=== PATIENT | female | born 1955 | race Hispanic/Latino ===

== ENCOUNTER 2016-10-24 14:27 | Inpatient (IN) | payer OTHER ==
[2016-10-24 15:35] LABS: Basophils % (Auto) 1.2 % (0.0-1.8); Eosinophils % (Auto) 2.8 % (0.0-4.3); Hematocrit 38.7 % (30.3-42.9); Hemoglobin 13.4 gm/dl (10.1-14.3); Mean Corpuscular HGB Conc 35 % (30-34); Mean Corpuscular Hemoglobin 33 pg (28-32); Mean Corpuscular Volume 95 fl (79-97); Platelet Count 215 K/mm3 (140-440); Red Blood Count 4.06 M/mm3 (3.65-5.03); Red Cell Distribution Width 12.9 % (13.2-15.2); White Blood Count 5.2 K/mm3 (4.5-11.0)
[2016-10-24 15:50] LABS: Anion Gap 18 mmol/L; BUN/Creatinine Ratio 22.22; Blood Urea Nitrogen 20 mg/dL (7-17); Calcium 8.9 mg/dL (8.4-10.2); Carbon Dioxide 24 mmol/L (22-30); Chloride 105.1 mmol/L (98-107); Glucose 107 mg/dL (65-100); Potassium 3.9 mmol/L (3.6-5.0); Sodium 143 mmol/L (137-145)
--- NOTE | 2016-10-24 16:22 | Emergency Department Report ---
ED Chest Pain HPI - General Chief Complaint: Chest Pain Stated Complaint: CHEST PAIN Time Seen by Provider: 10/24/16 16:10 Source: EMS Mode of arrival: Stretcher Limitations: No Limitations - History of Present Illness Initial Comments: Patient is a 61 years old female in by ambulance with left-sided chest pain that started around 2:00 this afternoon. She describes her pain as pressure- like radiated to her back and left shoulder. She never had any similar pain like this before. No shortness of breath no nausea no vomiting. Patient is a heavy smoker since she was a teenager. History of high cholesterol. MD Complaint: chest pain -: Sudden Onset: during rest Pain Location: substernal, left chest Pain Radiation: back Severity scale (0 -10): 7 Quality: tightness, heaviness re: diaphoresis. denies: nausea, vomting Other Symptoms: denies: cough, fever, rash - Related Data Allergies Allergy/AdvReac Type Severity Reaction Status Date / Time aspirin [From Bufferin] Allergy Itching Verified 10/24/16 14:49 calcium carbonate Allergy Itching Verified 10/24/16 14:49 [From Bufferin] magnesium [From Bufferin] Allergy Itching Verified 10/24/16 14:49 codeine AdvReac Itching Verified 10/24/16 14:49 Heart Score - HEART Score History: Moderately suspicious EKG: Non-specific Age: 45-65 Risk factors: 1-2 risk factors Troponin: < normal limit HEART Score: 4 - Critical Actions Critical Actions: 4-6 pts:12-16.6% risk of adverse cardiac event. Should be admitted ED Review of Systems ROS: Stated complaint: CHEST PAIN Other details as noted in HPI Comment: All other systems reviewed and negative Constitutional: denies: chills, fever Respiratory: denies: cough, shortness of breath Cardiovascular: chest pain. denies: palpitations, dyspnea on exertion, orthopnea Gastrointestinal: denies: abdominal pain, nausea, vomiting, diarrhea Neurological: denies: headache, weakness, numbness ED Past Medical Hx - Social History Smoking Status: Current Every Day Smoker Substance Use Type: Alcohol ED Physical Exam - General Limitations: No Limitations General appearance: alert - Neck Neck exam: Present: normal inspection - Respiratory Respiratory exam: Present: normal lung sounds bilaterally. Absent: respiratory distress, wheezes, rales, rhonchi, stridor, chest wall tenderness, accessory muscle use, decreased breath sounds, prolonged expiratory - Cardiovascular Cardiovascular Exam: Present: bradycardia, normal heart sounds. Absent: systolic murmur, diastolic murmur - GI/Abdominal GI/Abdominal exam: Present: soft. Absent: distended, tenderness, guarding, rebound - Extremities Exam Extremities exam: Present: normal inspection. Absent: pedal edema - Back Exam Back exam: Absent: CVA tenderness (R), CVA tenderness (L) - Neurological Exam Neurological exam: Present: alert, oriented X3, CN II-XII intact - Skin Skin exam: Present: warm, intact ED Course Vital Signs 10/24/16 10/24/16 10/24/16 14:30 14:46 14:48 Temperature 98.6 F 98.6 F 98.6 F Pulse Rate 58 L 56 L 58 L Respiratory 16 18 16 Rate Blood Pressure 126/71 Blood Pressure 126/71 126/71 [Right] O2 Sat by Pulse 99 98 98 Oximetry 10/24/16 14:51 Temperature Pulse Rate Respiratory 20 Rate Blood Pressure Blood Pressure [Right] O2 Sat by Pulse 98 Oximetry - Reevaluation(s) Reevaluation #1: 10/24/16 17:15 Patient stated that she is feeling better discussed with Dr. Hyatt for admission ED Medical Decision Making - Lab Data Result diagrams: 10/24/16 15:18 10/24/16 15:18 Critical care attestation.: If time is entered above; I have spent that time in minutes in the direct care of this critically ill patient, excluding procedure time. ED Disposition Clinical Impression: Chest pain Disposition: OP ADMIT IP TO THIS HOSP Is pt being admited?: Yes Condition: Stable Instructions: Chest Pain (ED) Referrals: PRIMARY CARE,MD [Primary Care Provider] - 3-5 Days
--- NOTE | 2016-10-24 16:50 | XRay Report ---
AP CHEST: History: Chest pain. AP view of the chest demonstrates a normal mediastinal and cardiac contour with clear lungs and normal bony and soft tissue structures. IMPRESSION: Normal AP chest.
--- NOTE | 2016-10-24 17:37 | Admit Criteria Form ---
Admission Criteria Documentation: CHEST PAIN Clinical Indications for Admission to Inpatient Care (Place 'X' for any and all applicable criteria): Admission is indicated for chest pain and ANY ONE of the following(1)(2)(3)(4)(5 ): [ ]I. Angina with acute coronary syndrome (Also use Myocardial Infarction or Angina guideline) [ ]II. Hemodynamic instability [ ]III. Angina needing acute intervention as indicated by ALL of the following( 11)(12): [ ]a) Unstable angina is present as indicated by angina that is ANY ONE of the following: [ ]i) New onset [ ]ii) Nocturnal [ ]iii) Prolonged at rest [ ]iv) Progressive [ ]b) Angina warrants acute intervention as indicated by ANY ONE of the following: [ ]i) Recurrent angina (e.g, not responding as previously to treatment) [ ]ii) Angina at rest or with low-level activities despite initial medical therapy [ ]iii) New or presumably new ST-segment depression on ECG [ ]iv) Signs or symptoms of heart failure (eg, dyspnea, pulmonary edema) [ ]v) New or worsening mitral regurgitation [ ]vi) Hemodynamic instability [ ]vii) Dangerous arrhythmia (eg, sustained ventricular tachycardia) [ ]viii) History of percutaneous coronary intervention within 6 months [ ]ix) History of coronary artery bypass graft surgery [ ]x) KISHA risk score of 2 or greater[A] [ ]xi) History of Diabetes(14) [ ]xii) High-risk cardiac ischemia findings on noninvasive testing (e.g, echocardiogram, treadmill testing, nuclear scan) [ ]xiii) Chronic renal insufficiency (ie, estimated GFR less than 60 mL/min/1.732m) [ ]xiv) Left ventricular ejection fraction less than 40% [ ]IV. Evidence of WA (eg, cardiac biomarkers positive, ST-segment elevation on ECG) also use Myocardial Infarction Criteria Form. [ ]V. Pulmonary edema [ ]. Respiratory distress [ ]VII. Chest pain indicative of serious diagnosis other than coronary artery disease (eg, aortic dissection) [ ]VIII. Contraindications and/or Inappropriate clinical situations for Observational Care in patients with Chest Pain, when ANY ONE of the following is required: [ ]a) Patient with risk factor for pulmonary embolism, acute coronary syndrome and myocardial infarction (18) [ ]b) Patient with Pulmonary embolism require an average LOS of 4.3 days, therefore emergency department observation management is inappropriate 18,23 [ ]c) Painful condition/s in the elderly, have the highest rate of recidivism after emergency department observation management (10.8%) 20,21,22 [ ]d) Elevated cardiac biomarker requires intensive and exhaustive care (19) [X ]IX. General contraindications and/or Inappropriate clinical situations for Observational Care in patients with Chest Pain, when ANY ONE of the following is required: [ X]a) Prediction of prolongation of LOS based on ANY ONE of the following may be considered as a contraindication for observational care 2, 3, 4, 5, 6, 7, 8, 9, 10, 11 [ ]i) Age > 65 yrs. [ X]ii) Patient arriving by ambulance [ ]iii) Patient with high acuity [ ]iv) Patient requiring vital sign monitoring [ ]v) Patient on IV medication [ ]b) Systolic blood pressures 180mmHg 3,12 [ ]c) Patient with altered mental status including delirium and other alteration of consciousness, (3) [ ]d) Patient whose discharge disposition will be to a residential home or rehabilitation home should not be managed in Emergency Department Observation Unit. CMS rule requires 3 days hospital stay before such placement. 3,13 [ ]e) Patient with failure to thrive due to broad array of etiologies 3,16,17 [ ]f) Inability to ambulate 3,14 Extended stay beyond goal length of stay may be needed for (1)(28): [ ]a) Specific condition diagnosed after evaluation (eg, pulmonary embolism, aortic dissection) [ ]b) Unstable angina [ ]c) Continued suspicion of acute coronary syndrome with inability to complete needed cardiac evaluation (eg, patient clinically unable to undergo stress testing) [ ]d) Myocardial infarction (Contents from ANGINA and CHEST PAIN clinical indications for admission to inpatient care have been integrated in this form) The original [employer] content created by [employer] has been revised. The portions of the content which have been revised are identified through the use of italic text or in bold, and [facility] [employer] has neither reviewed nor approved the modified material. All other unmodified content is copyright [employer]. Please see references footnoted in the original [facility] [employer] edition 2016 Admission Criteria Met: Yes
[2016-10-24] MEDS ORDERED: CLONAZEPAM 0.25 MG PO PRN (17:47)
--- NOTE | 2016-10-24 17:47 | History and Physical Report ---
History of Present Illness Date of examination: 10/24/16 Date of admission: 10/24/16 Chief complaint: Chest pain sinnce 2 pm History of present illness: - History of Present Illness Patient is a 61 years old female in by ambulance with left-sided chest pain that started around 2:00 this afternoon. She describes her pain as pressure- like radiated to her back and left shoulder. She never had any similar pain like this before. No shortness of breath no nausea no vomiting. Patient is a heavy smoker since she was a teenager. History of high cholesterol. Onset: during rest Pain Location: substernal, left chest Pain Radiation: back Severity scale (0 -10): 7 Quality: tightness, heaviness No diaphoresis. denies: nausea, vomting Other Symptoms: denies: cough, fever, rash Past History Past Medical History: other (Anxiety/Depression) Past Surgical History: No surgical history Social history: smoking (1pps) Medications and Allergies Allergies Allergy/AdvReac Type Severity Reaction Status Date / Time aspirin [From Bufferin] Allergy Itching Verified 10/24/16 14:49 calcium carbonate Allergy Itching Verified 10/24/16 14:49 [From Bufferin] magnesium [From Bufferin] Allergy Itching Verified 10/24/16 14:49 codeine AdvReac Itching Verified 10/24/16 14:49 Iodinated Contrast Media - AdvReac Nausea Verified 10/24/16 18:36 IV Dye Home Medications Medication Instructions Recorded Confirmed Last Taken Type Aspirin [Adult Low Dose Aspirin EC] 81 mg PO DAILY 10/24/16 10/24/16 10/24/16 History Multivitamin Tab [Multiple Vitamin 1 each PO QDAY 10/24/16 10/24/16 10/24/16 History TAB (Theragran)] Vortioxetine Hydrobromide 10 mg PO DAILY 10/24/16 10/24/16 10/24/16 History [Trintellix] clonazePAM 0.25 mg PO QID PRN 10/24/16 10/24/16 10/24/16 History Review of Systems All systems: negative Constitutional: no weight loss, no weight gain, no fever, no chills, no sweats, no night sweats, no anorexia, no fatigue, no weakness, no malaise, no lethargy Ears, nose, mouth and throat: no sore throat, no swelling in mouth, no swelling in throat, no odynophagia Breasts: deferred Cardiovascular: chest pain, no orthopnea, no palpitations, no rapid/irregular heart beat, no edema, no syncope, no lightheadedness, no shortness of breath Respiratory: no cough, no cough with sputum, no excessive sputum, no hemoptysis , no shortness of breath, no dyspnea on exertion Gastrointestinal: no nausea, no vomiting, no diarrhea, no constipation, no change in bowel habits, no hematemesis, no coffee ground emesis Genitourinary Female: no dysuria, no urinary frequency, no urgency, no stress incontinence Menstruation: no ammenorrhea Musculoskeletal: no neck stiffness, no neck pain, no shooting arm pain, no arm numbness/tingling, no low back pain, no shooting leg pain, no leg numbness/ tingling, no redness of joints Integumentary: no rash, no pruritis, no redness, no sores, no wounds, no jaundice, no boils, no blisters Neurological: no seizures, no syncope Psychiatric: anxiety Endocrine: no cold intolerance, no heat intolerance, no polyphagia, no excessive thirst, no polydipsia, no polyuria, no nocturia Hematologic/Lymphatic: no easy bruising, no easy bleeding Allergic/Immunologic: no urticaria, no allergic rhinitis, no wheezing Exam - Physical Exam Narrative exam: Lying in bed comfortably - Constitutional Vitals: Temp Pulse Resp BP Pulse Ox 98.6 F 58 L 20 126/71 98 10/24/16 14:48 10/24/16 14:48 10/24/16 14:51 10/24/16 14:48 10/24/16 14:51 General appearance: Present: no acute distress, well-nourished - EENT Eyes: Present: PERRL ENT: hearing intact, clear oral mucosa - Neck Neck: Present: supple, normal ROM - Respiratory Respiratory effort: normal Respiratory: bilateral: CTA - Cardiovascular Heart rate: 70 Rhythm: regular Heart Sounds: Present: S1 & S2. Absent: rub, click - Extremities Extremities: pulses symmetrical, No edema Peripheral Pulses: within normal limits - Abdominal General gastrointestinal: Present: soft, non-tender, non-distended, normal bowel sounds Female genitourinary: Present: normal - Rectal Rectal Exam: deferred - Integumentary Integumentary: Present: clear, warm, dry - Musculoskeletal Musculoskeletal: gait normal, strength equal bilaterally - Psychiatric Psychiatric: appropriate mood/affect, intact judgment & insight - Neurologic Neurologic: CNII-XII intact, moves all extremities - Allied Health Allied health notes reviewed: nursing, case management Results - Labs CBC & Chem 7: 10/25/16 05:11 10/24/16 15:18 Labs: Laboratory Last Values WBC 5.2 K/mm3 (4.5-11.0) 10/24/16 15:18 RBC 4.06 M/mm3 (3.65-5.03) 10/24/16 15:18 Hgb 13.4 gm/dl (10.1-14.3) 10/24/16 15:18 Hct 38.7 % (30.3-42.9) 10/24/16 15:18 MCV 95 fl (79-97) 10/24/16 15:18 MCH 33 pg (28-32) H 10/24/16 15:18 MCHC 35 % (30-34) H 10/24/16 15:18 RDW 12.9 % (13.2-15.2) L 10/24/16 15:18 Plt Count 215 K/mm3 (140-440) 10/24/16 15:18 Lymph % (Auto) 35.4 % (13.4-35.0) H 10/24/16 15:18 [place] % (Auto) 10.4 % (0.0-7.3) H 10/24/16 15:18 Eos % (Auto) 2.8 % (0.0-4.3) 10/24/16 15:18 Baso % (Auto) 1.2 % (0.0-1.8) 10/24/16 15:18 Lymph # 1.8 K/mm3 (1.2-5.4) 10/24/16 15:18 [place] # 0.5 K/mm3 (0.0-0.8) 10/24/16 15:18 Eos # 0.1 K/mm3 (0.0-0.4) 10/24/16 15:18 Baso # 0.1 K/mm3 (0.0-0.1) 10/24/16 15:18 Seg Neutrophils % 50.2 % (40.0-70.0) 10/24/16 15:18 Seg Neutrophils # 2.6 K/mm3 (1.8-7.7) 10/24/16 15:18 Sodium 143 mmol/L (137-145) 10/24/16 15:18 Potassium 3.9 mmol/L (3.6-5.0) 10/24/16 15:18 Chloride 105.1 mmol/L (98-107) 10/24/16 15:18 Carbon Dioxide 24 mmol/L (22-30) 10/24/16 15:18 Anion Gap 18 mmol/L 10/24/16 15:18 BUN 20 mg/dL (7-17) H 10/24/16 15:18 Creatinine 0.9 mg/dL (0.7-1.2) 10/24/16 15:18 Estimated GFR > 60 ml/min 10/24/16 15:18 BUN/Creatinine Ratio 22.22 % 10/24/16 15:18 Glucose 107 mg/dL (65-100) H 10/24/16 15:18 Calcium 8.9 mg/dL (8.4-10.2) 10/24/16 15:18 Troponin T < 0.010 ng/mL (0.00-0.029) 10/24/16 15:18 - Imaging and Cardiology EKG: report reviewed (Sinus Bradycardia 48/min) Assessment and Plan Advance Directives: Yes (Full code) Plan of care discussed with patient/family: Yes - Patient Problems (1) Chest pain Current Visit: Yes Status: Acute Qualifiers: Chest pain type: C Ischemic chest pain type: unspecified angina pectoris type Qualified Code(s): I20.9 - Angina pectoris, unspecified Plan to address problem: Chest pain r/o ME protocol.DDX of GERD and costochondritis.Serial cardiac enzymes and Threadmill stress test in AM. (2) Anxiety and depression Current Visit: Yes Status: Chronic Plan to address problem: Continue Clonazepam and trintillex (3) Nicotine dependence Current Visit: Yes Status: Chronic Qualifiers: Substance use status: S Plan to address problem: Nicoderm patch ordered (4) DVT prophylaxis Current Visit: Yes Status: Acute Plan to address problem: on Lovenox
[2016-10-24] MEDS ORDERED: ZOFRAN IV PRN (17:48)
[2016-10-24] MEDS ORDERED: DILAUDID IV PRN (17:48)
[2016-10-24] MEDS ORDERED: TYLENOL PO PRN (17:48)
[2016-10-24] MEDS ORDERED: PERCOCET 5/325 PO PRN (17:48)
[2016-10-24] MEDS ORDERED: MILK OF MAGNESIA PO PRN (17:48)
[2016-10-24] MEDS ORDERED: DULCOLAX PR PRN (17:48)
[2016-10-24] MEDS ORDERED: NON-FORMULARY (Vortioxetine Hydrobromide [Trintellix] 10 MG) PO SCH (18:00)
[2016-10-24] MEDS: HALFPRIN EC PO SCH (19:11)
[2016-10-24 21:56] LABS: Creatine Kinase 118 units/L (30-135)
[2016-10-24] MEDS ORDERED: LOVENOX SUB-Q SCH (22:00)
[2016-10-25 03:27] LABS: Creatine Kinase MB 1.9 ng/mL (0.0-4.0)
[2016-10-25 03:28] LABS: Creatine Kinase 110 units/L (30-135)
[2016-10-25 05:43] LABS: Basophils % (Auto) 0.6 % (0.0-1.8); Eosinophils % (Auto) 4.3 % (0.0-4.3); Hematocrit 39.2 % (30.3-42.9); Hemoglobin 13.6 gm/dl (10.1-14.3); Mean Corpuscular HGB Conc 35 % (30-34); Mean Corpuscular Hemoglobin 33 pg (28-32); Mean Corpuscular Volume 96 fl (79-97); Platelet Count 204 K/mm3 (140-440); Red Blood Count 4.09 M/mm3 (3.65-5.03); Red Cell Distribution Width 13.2 % (13.2-15.2); White Blood Count 5.5 K/mm3 (4.5-11.0)
[2016-10-25 06:23] LABS: Creatine Kinase MB 1.9 ng/mL (0.0-4.0)
[2016-10-25] MEDS ORDERED: HABITROL TD SCH (10:00)
[2016-10-25] MEDS: HALFPRIN EC PO SCH (10:13)
[2016-10-25 14:48] VITALS: BP 115/66
--- NOTE | 2016-10-25 15:16 | Discharge Summary ---
Providers - Providers Date of Admission: 10/24/16 17:17 Attending physician: NATASHA VILLAREAL MD Primary care physician: [facility] Hospitalization Condition: Stable Pertinent studies: MPI- NEGATIVE FOR ISCHEMIA Hospital course: Patient is a 61 years old female in by ambulance with left-sided chest pain. Patient is a heavy smoker since she was a teenager. History of high cholesterol. ACS was ruled out by negative troponins. She went on to have a negative stress test. She was counseled about tobacco cessation and is likely continue being to her chest pain. She clinically improved and was discharged home in stable condition Discharge diagnoses Chest pain due to costochondritis Anxiety and depression Nicotine abuse Hyperlipidemia Disposition: DC-01 TO HOME OR SELFCARE Time spent for discharge: 33 MINUTES Core Measure Documentation - Palliative Care Palliative Care/ Comfort Measures: Not Applicable - Core Measures Any of the following diagnoses?: none Exam - Constitutional Vitals: Temp Pulse Resp BP Pulse Ox 98.1 F 58 L 18 115/66 98 10/25/16 13:15 10/25/16 13:15 10/25/16 13:15 10/25/16 13:15 10/25/16 13:15 General appearance: Present: no acute distress, well-nourished - EENT Eyes: Present: PERRL ENT: hearing intact, clear oral mucosa - Neck Neck: Present: supple, normal ROM - Respiratory Respiratory effort: normal Respiratory: bilateral: CTA - Cardiovascular Heart Sounds: Present: S1 & S2. Absent: rub, click - Extremities Extremities: pulses symmetrical, No edema Peripheral Pulses: within normal limits - Abdominal General gastrointestinal: Present: soft, non-tender, non-distended, normal bowel sounds Female genitourinary: Present: normal - Integumentary Integumentary: Present: clear, warm, dry - Musculoskeletal Musculoskeletal: gait normal, strength equal bilaterally - Psychiatric Psychiatric: appropriate mood/affect, intact judgment & insight - Neurologic Neurologic: CNII-XII intact, moves all extremities Plan Follow up with: PRIMARY CARE, [Primary Care Provider] - 3-5 Days Prescriptions: clonazePAM 0.25 mg PO QID PRN #7 tab.rapdis PRN Reason: Anxiety Nicotine [Habitrol] 21 mg TD QDAY #30 patch
--- NOTE | 2016-10-26 00:18 | Treadmill Report ---
ORDERING PHYSICIAN: Yas Hyatt MD INDICATION: Chest pain. FINDINGS: After obtaining written consent, the patient underwent a Fabian protocol treadmill stress test. The patient's heart rate at baseline was 51 beats per minute with a baseline blood pressure of 124/74. The patient exercised for a period of 10 minutes on the Fabian protocol achieving a heart rate of 167 beats per minute, which represents 103% of the maximal age predicted heart rate. No ischemic EKG changes were recorded. The patient denied any limiting chest pain or shortness of breath. Maximum recorded blood pressure was 144/79. IMPRESSION: This is a low risk treadmill stress test. No ischemic EKG changes. No limiting chest pain or shortness of breath and appropriate blood pressure response. RECOMMENDATIONS: As per primary team. JOB# [id number] ROD/PITER
== END 2016-10-25 16:25 | disposition home or self-care (01) | DRG 311 ==
LOC: ED 14:27 → 4A 17:17
PROVIDERS: ADMIT Internal Medicine; ATTEND Internal Medicine
DX: I20.9 Angina pectoris, unspecified (principal); F41.9 Anxiety disorder, unspecified; F32.9 Major depressive disorder, single episode, unspecified; F17.210 Nicotine dependence, cigarettes, uncomplicated; E78.00 Pure hypercholesterolemia, unspecified; Z88.5 Allergy status to narcotic agent; Z88.6 Allergy status to analgesic agent; Z88.8 Allergy status to other drugs, medicaments and biological substances; Z79.82 Long term (current) use of aspirin
CPT/HCPCS: 36415; 71010; 80048; 82550; 82553; 83036; 84484; 85025; 93005; 93010; 93017; J1650

== ENCOUNTER 2018-06-27 09:20 | Day surgery (SDC) | payer OTHER ==
[~2018-06-27 09:20] MED LIST: AK-Dilate OD NR
[2018-06-27] MEDS ORDERED: AK-Dilate OD ONE (09:57)
[2018-06-27] MEDS: VIGAMOX OD SCH ×3 (10:00→10:15)
[2018-06-27] MEDS: AK-Dilate OD SCH ×3 (10:00→10:15)
[2018-06-27] MEDS: MYDRIACYL OU SCH ×3 (10:00→10:15)
[2018-06-27] MEDS ORDERED: VERSED ONE (10:26)
[2018-06-27] MEDS ORDERED: TETRACAINE 0.5% OU SCH (11:00)
--- NOTE | 2018-06-27 11:09 | Operative Report ---
Operative Report Operative Report: PATIENT'S NAME: DATE OF : DATE OF SURGERY: 06/27/2018 PREOPERATIVE DIAGNOSIS: Cataract and Astigmatism left Eye POSTOPERATIVE DIAGNOSIS: Same OPERATIVE PROCEDURE: Phacoemulsification with intraocular lens implantation, left eye Toric SURGEON: Sherley Harrington M.D. LENS: [id number] 25.5 at 75 ANESTHESIA: Monitored anesthesia care in combination with topical and intracameral anesthesia because of the established specific risk of reflux, arrhythmias, or anxiety attacks associated with ocular manipulation, as well as the difficulty of the manager protein to manage such potentially catastrophic events while simultaneously attempting to complete the surgical procedure and was deemed necessary for the patient's safety to have a Nurse Secret Service Agent present during the procedure whenever possible. A Nurse Secret Service Agent was utilized to regulate the intravenous sedation of the patient so the patient was cooperative yet not asleep in order for the patient to successfully maintain fixation of the eye on the operating light of the microscope. COMPLICATIONS: No surgical complications. No blood loss. ALLERGIES: Aspirin calcium magnesium codeine PROGNOSIS: Excellent INDICATIONS FOR SURGERY: The patient is undergoing surgery in the hopes of eliminating or improving these visual difficulties. PROCEDURE: After arriving at the surgery center, the patient was given topical anesthetic and dilating drops, as noted in the record. The patient was then taken into the operating room and given more anesthetic drops. The eyelids, lashes, and lid margins were scrubbed with Betadine solution, and the patient was draped. The Nurse Secret Service Agent administered IV sedation and monitored the patient during the procedure. A speculum was placed between the eyelids, and the patient was asked to fixate on the light of the microscope. The patient has been noted to have pre-existing astigmatism as well as a concern to be left with as little astigmatism as possible after surgery in order to improve their uncorrected visual acuity after surgery.~ They have, therefore, elected to have our option for astigmatism management and have signed a waiver acknowledging their understanding of the process, its benefits and risks, and wish to proceed with this option. Based on the preoperative evaluation of the topography of their corneal mapping of astigmatism, the wound orientation, wound size, and use of a relaxing incision have been utilized to minimize their post operative astigmatism. In some cases a toric, or astigmatic, intraocular lens implant may be used in conjunction with a relaxing incision or in place of one. When an astigmatic lens is used, preoperative evaluation of the topography with careful planning of the lens position and power of the astigmatic correction by lens are all done. ~The calculation of the lens power for the astigmatic correction and the lens orientation of the astigmatic lens is performed separately and subsequently from the normal lens power calculation for the standard cataract lens power needed for standard surgery without astigmatism management. ~In fact, the toric lens power calculation can not be done until the standard lens power calculations are performed and finished - so that is a totally separate part of the preoperative planning. The eye was then fixated with a round bailey, which would damage the conjunctival tissues or vessel, and a stab incision was made in the peripheral clear cornea into the anterior chamber. Viscoelastic was next used to fill the anterior chamber. The eye was once again fixated with the round bailey and a keratome was used make an incision in clear cornea peripherally on my right hand side temporally. Hydrodissection was carried out utilizing a U-shaped cannula and balanced salt solution to delineate the cortical material from the capsule and the nucleus from the cortical material. The phaco tip was introduced into the eye and used to remove the anterior cortical material in the area of the capsulotomy. Then the phaco tip was buried into the nucleus, and a chopping instrument was introduced into the eye and used to provide countertraction in the nucleus between this instrument and the phaco tip fracturing the nucleus. This procedure was repeated multiple times, providing multiple small segments of the lens, and then the phaco tip was used to remove each of these segments. An I/A tip was then used to remove the remaining cortex. An one-piece, acrylic intraocular lens was then placed into an inserting cartridge. The tip of the inserting cartridge was introduced into the keratome incision and into the anterior chamber. The implant was gently advanced through the cartridge and into the eye, where it unfolded, and both haptics were placed in the capsular bag, where it centered nicely and appeared to be well fixated. Prior to prepping the patient, the patient was asked to sit up on the operative bed and look across the room. ~Utilizing a special marking instrument, the cardinal meridians at 3:00, 6:00, and 9:00 were marked with Gentian conner.~ These baum were used later in the surgery as reference baum to identify the proper location of the axis for the placement of the astigmatic, or toric, intraocular lens.~ The axis was marked with Gentian conner prior to entering the eye.~ After placement of the intraocular lens implant and removal of the viscoelastic from both the capsular bag and anterior chamber, the lens was positioned so it was perfectly aligned along this axis. The orientation was rechecked once the wounds were hydrated and the integrity of the wounds was verified. After placement of the intraocular lens, the I~and~A handpiece was placed back into the eye and used to remove the viscoelastic, including viscoelastic that was behind the optic of the intraocular lens. The anterior chamber was then filled with balanced salt solution, and hydration of the wound was used to cause swelling of the wound and more appropriate watertight closure. When the wound was found to be firm, the patient was asked to comment on how bright the light was. If there was no light perception at all or if the light was substantially dimmer than during the rest of the surgery, the amount of fluid in the eye was decompressed to lower the intraocular pressure until the patient could see the bright light again. This was done to avoid any damage or decreased blood flow to the optic nerve. MEDICATIONS APPLIED AT END OF SURGERY: One drop vigamox and Pred Forte The patient was given a shield to wear at night and was instructed not to rub or push on the eye. DISCHARGE SUMMARY: The patient was released in stable condition. The patient and those with the patient were given a written sheet of postoperative instructions and counseling on any abnormal laboratory studies. The patient is to see us tomorrow for follow-up in the office and is to call immediately for any difficulties. Sherley Harrington M.D. Date
--- NOTE | 2018-06-27 11:10 | Short Stay Summary ---
Short Stay Documentation - History H&P: obtained from office - Allergies and Medications Current Medications: Allergies aspirin [From Bufferin] Allergy (Verified 06/26/18 12:37) Itching calcium carbonate [From Bufferin] Allergy (Verified 06/26/18 12:37) Itching magnesium [From Bufferin] Allergy (Verified 06/26/18 12:37) Itching codeine Adverse Reaction (Verified 06/26/18 12:37) Itching Iodinated Contrast- Oral and IV Dye [Iodinated Contrast Media - IV Dye] Adverse Reaction (Verified 06/26/18 12:37) Nausea Home Medications Medication Instructions Recorded Confirmed Last Taken Type No Known Home Medications [No 06/26/18 06/26/18 Unknown History Reported Home Medications] Active Medications Acetazolamide (Diamox) 500 mg PO ONCE ONE Stop: 06/27/18 11:08 Moxifloxacin HCl (Vigamox) 1 drops OD Q5M BLANCA Stop: 06/27/18 07:31 Phenylephrine HCl (Ak-Dilate) 1 drops OD Q5M BLANCA Stop: 06/27/18 23:59 Prednisolone Acetate (Pred Forte 1%) 1 drops OS ONCE NR Tetracaine HCl (Tetracaine 0.5%) 1 drops OU Q5M BLANCA Stop: 06/27/18 23:59 Tropicamide (Mydriacyl) 1 drops OU Q5M BLANCA Stop: 06/27/18 23:59 - Brief post op/procedure progress note Date of procedure: 06/27/18 Pre-op diagnosis: left cataract and astigmatism Post-op diagnosis: same Procedure: Phacoemulsification with toric lens insertion left eye Anesthesia: MAC, local Surgeon: KEN LIZAMA Estimated blood loss: none Pathology: none Condition: stable - Disposition Condition at discharge: Good Disposition: DC-01 TO HOME OR SELFCARE - Discharge Diagnoses (1) Cortical age-related cataract of left eye Status: Resolved (2) Astigmatism of left eye Status: Resolved Qualifiers: Astigmatism type: regular Qualified Code(s): H52.222 - Regular astigmatism, left eye Short Stay Discharge Plan Follow up with: PRIMARY CARE, [Primary Care Provider] - 7 Days
--- NOTE | 2018-06-27 11:47 | Anesthesia Consultation ---
Anesthesia Consult and Med Hx Date of service: 06/27/18 - Airway Anesthetic Teeth Evaluation: Good ROM Head & Neck: Adequate Mental/Hyoid Distance: Adequate Mallampati Class: Class II Intubation Access Assessment: Probably Good - Pulmonary Exam CTA: Yes - Cardiac Exam Cardiac Exam: RRR - Pre-Operative Health Status ASA Pre-Surgery Classification: ASA2 Proposed Anesthetic Plan: MAC - Pulmonary Hx Smoking: Yes (4CIG/DAY SINCE AGE 18) - Cardiovascular System Hx Hypertension: No Hx Valvular Heart Disease: Yes (MVP) - Central Nervous System CVA: No - Gastrointestinal Hx Gastroesophageal Reflux Disease: Yes - Endocrine Hx Renal Disease: No Hx Insulin Dependent Diabetes: No - Other Systems Hx Alcohol Use: Yes (OCCA) Hx Substance Use: No Hx Cancer: No - Additional Comments Anesthesia Medical History Comments: No hx anesthetic complications.
--- NOTE | 2018-06-27 11:47 | Anesthesia Day of Surgery ---
Anesthesia Day of Surgery - Day of Surgery Patient Examined: Yes Patient H&P Reviewed: Yes Patient is NPO: Yes
[2018-06-27] MEDS ORDERED: PRED FORTE 1% OS NR (12:00)
[2018-06-27] MEDS ORDERED: DIAMOX PO ONE (12:00)
[2018-06-27 12:48] VITALS: BP 112/65
--- NOTE | 2018-06-27 13:23 | Post Anesthesia Evaluation ---
- Post Anesthesia Evaluation Patient Participated: Yes Airway Patent: Yes Stable Respiratory Function: Yes Nausea/Vomiting: No Temp > 96.8F: Yes Pain Manageable: Yes Adequeate Hydration: Yes Anesthesia Complications: No
== END 2018-06-27 12:00 | disposition home or self-care (01) ==
LOC: OR 09:20
DX: H25.012 Cortical age-related cataract, left eye (principal); H52.202 Unspecified astigmatism, left eye; F41.8 Other specified anxiety disorders; G43.909 Migraine, unspecified, not intractable, without status migrainosus; K21.9 Gastro-esophageal reflux disease without esophagitis; F17.200 Nicotine dependence, unspecified, uncomplicated; Z90.49 Acquired absence of other specified parts of digestive tract; Z90.710 Acquired absence of both cervix and uterus; Z87.442 Personal history of urinary calculi; Z72.89 Other problems related to lifestyle; Z98.890 Other specified postprocedural states; Z88.6 Allergy status to analgesic agent; Z88.5 Allergy status to narcotic agent; Z91.040 Latex allergy status; Z88.8 Allergy status to other drugs, medicaments and biological substances
CPT/HCPCS: 66984; J2250; V2630